=== PATIENT | female | born 1935 | race Caucasian/White ===

== ENCOUNTER 2016-07-03 07:53 | Day surgery (SDC) | payer MEDICARE, OTHER ==
--- NOTE | ~2016-07-03 | EGD ---
EGD REPORT [facility] [address] [address] NAME: AMALIA CAAL : 39 STATUS : REG [facility]#: [id number] AGE: 80 ADM/REG DATE : 07/03/16 MR#: [id number] REPORT SERV DATE: 07/03/16 DICTATED BY: DATE: REPORT STATUS : Draft TRANSCRIBED BY: [employer] DATE: 07/03/16 [facility] Center Patient Name: Amalia Caal Date of : 1935 Attending MD: ELIE HERNANDEZ MD Procedure Date No Time: 07/03/2016 Procedure: Upper GI endoscopy Indications: Surveillance for malignancy due to personal history of Reynolds's esophagus Referring MD: MICHELLE DUARTE Medicines: Monitored Anesthesia Care Complications: No immediate complications. Procedure: Pre-Anesthesia Assessment: - ASA Grade Assessment: III - A patient with severe systemic disease. After obtaining informed consent, the endoscope was passed under direct vision. Throughout the procedure, the patient's blood pressure, pulse, and oxygen saturations were monitored continuously. The GIF [id number] was introduced through the mouth, and advanced to the second part of duodenum. The upper GI endoscopy was accomplished without difficulty. The patient tolerated the procedure well. Findings: There were esophageal mucosal changes consistent with short-segment Reynolds's esophagus present at the gastroesophageal junction, 38 cm from the incisors. The maximum longitudinal extent of these mucosal changes was 0.5 cm in length. Biopsies were taken with a cold forceps for histology. No other significant abnormalities were identified in a careful examination of the esophagus. There is no endoscopic evidence of areas of erosion, hiatus hernia, ulcerations or varices in the entire esophagus. The entire examined stomach was normal. There is no endoscopic evidence of mucosal abnormalities, ulceration or varices in the entire examined stomach. The examined duodenum was normal. There is no endoscopic evidence of inflammation, mucosal abnormalities or ulceration in the entire examined duodenum. The cardia and gastric fundus were normal on retroflexion. Impression: - Esophageal mucosal changes consistent with short-segment Reynolds's esophagus. Biopsied. - Normal stomach. EGD REPORT [address] [address] NAME: AMALIA CAAL : 39 STATUS : REG [facility]#: [id number] AGE: 80 ADM/REG DATE : 07/03/16 MR#: [id number] REPORT SERV DATE: 07/03/16 DICTATED BY: DATE: REPORT STATUS : Draft TRANSCRIBED BY: [employer] DATE: 07/03/16 - Normal examined duodenum. Recommendation: - Patient has a contact number available for emergencies. The signs and symptoms of potential delayed complications were discussed with the patient. Return to normal activities tomorrow. Written discharge instructions were provided to the patient. - Return to previous diet. - Discharge patient to home. - Continue present medications. - Await pathology results. - Repeat the upper endoscopy in 3 years for surveillance. Procedure Code(s): --- Professional --- 69250, Esophagogastroduodenoscopy, flexible, transoral; with biopsy, single or multiple Diagnosis Code(s): --- Professional --- K22.70, Reynolds's esophagus without dysplasia CPT copyright 2013 [employer]. All rights reserved. The codes documented in this report are preliminary and upon plant manager review may be revised to meet current compliance requirements. ELIE HERNANDEZ MD 07/03/2016 10:24 AM This report has been signed electronically. Number of Addenda: 0 Note Initiated On: 07/03/2016 9:36 AM Scope Withdrawal Time 0 hours 0 minutes 0 seconds [address] [place] [address]
[~2016-07-03 07:53] MED LIST: ACET500CAP PO; ALPHAGAN P0.1 % OPH; ALTA2.5 PO; ARAVA20 PO; ASAB PO; ATRONASAL3 NAS; CITRACAL PO; CYANO1000T PO; FISH-EPA1000 MG PO; FLONASE NAS; FOLIC PO; METROCREAM0.75 % TOP; NEUR300 PO; ORENCIA250 MG IV; OS500+D PO; P1 PO; PREM.3B PO; PREV30 PO; PULMICORT180 MCG INH; SAS500 PO; TUMSROLL PO; VITAMIN D31000 UNIT PO; VOLTAREN1 % TOP; [UNRECOGNIZED DRUG - OTHER]
== END 2016-07-03 23:59 | disposition home health service (06) ==
LOC: DMU 07:53
PROVIDERS: Internal Medicine Gastroenterology
PROC: 0DB48ZX Excision of Esophagogastric Junction, Via Natural or Artificial Opening Endoscopic, Diagnostic (ICD-10-PCS; principal; 2016-07-03 09:00)
DX: Z09 Encounter for follow-up examination after completed treatment for conditions other than malignant neoplasm (principal); K21.9 Gastro-esophageal reflux disease without esophagitis; J45.909 Unspecified asthma, uncomplicated; M06.9 Rheumatoid arthritis, unspecified; L40.9 Psoriasis, unspecified; D64.9 Anemia, unspecified; Z88.8 Allergy status to other drugs, medicaments and biological substances; Z87.891 Personal history of nicotine dependence; Z88.1 Allergy status to other antibiotic agents; Z90.710 Acquired absence of both cervix and uterus; Z98.41 Cataract extraction status, right eye; Z98.42 Cataract extraction status, left eye; Z96.1 Presence of intraocular lens; Z87.19 Personal history of other diseases of the digestive system
CPT/HCPCS: 88305